=== PATIENT | male | born 1935 | race Caucasian/White ===

== ENCOUNTER 2024-02-12 13:28 | Day surgery (SDC) | payer OTHER ==
[2024-02-12] MEDS ORDERED: Xylocaine-Mpf 2% 5 Ml Vial IJ ONE (13:29)
[2024-02-12] MEDS ORDERED: Depo-Medrol 40 MG/ML IM ONE (13:29)
[2024-02-12] MEDS ORDERED: DIPRIVAN 200 MG/20 ML IV ONE (14:17)
--- NOTE | 2024-02-12 16:31 | XRAY ---
Indication: Bilateral L4-S1 MBB. Intraoperative fluoroscopy provided for 13 seconds. Single digital spot image submitted for interpretation demonstrates posterior needle tips projecting over the expected left and right L4-S1 nerve roots. Correlate with intraoperative findings/report.
--- NOTE | 2024-02-12 16:44 | XRAY ---
13 seconds of fluoroscopy was used in surgery for a bilateral L4-S1 MBB.
== END 2024-02-12 14:45 | disposition home or self-care (01) ==
LOC: SDC-PAIN 13:28
PROVIDERS: ATTEND Psychiatry & Neurology Pain Medicine
DX: M47.816 Spondylosis without myelopathy or radiculopathy, lumbar region (principal)
CPT/HCPCS: 64493; 64494; 72020; 77002; J2704

== ENCOUNTER 2024-03-03 12:51 | Day surgery (SDC) | payer OTHER ==
[2024-03-03] MEDS ORDERED: Depo-Medrol 40 MG/ML IM ONE (12:52)
[2024-03-03] MEDS ORDERED: BUPIVACAINE 0.5% VIAL IJ ONE (12:52)
[2024-03-03] MEDS ORDERED: DIPRIVAN 200 MG/20 ML IV ONE (13:56)
--- NOTE | 2024-03-03 16:29 | XRAY ---
Indication: Bilateral L4-S1 MBB. Intraoperative fluoroscopy provided for 9 seconds. Single digital spot image submitted for interpretation demonstrates posterior needle tips projecting over the expected left and right L4-S1 nerve roots. Correlate with intraoperative findings/report.
--- NOTE | 2024-03-03 17:10 | XRAY ---
9 seconds of fluoroscopy was used in surgery for a bilateral L4-S1 MBB.
== END 2024-03-03 14:20 | disposition home or self-care (01) ==
LOC: SDC-PAIN 12:51
PROVIDERS: ATTEND Psychiatry & Neurology Pain Medicine
DX: M47.816 Spondylosis without myelopathy or radiculopathy, lumbar region (principal)
CPT/HCPCS: 64493; 64494; 72020; 77002; J2704

== ENCOUNTER 2024-04-21 11:46 | Day surgery (SDC) | payer OTHER ==
[2024-04-21] MEDS ORDERED: propofoL IV ONE (13:28)
--- NOTE | 2024-04-21 14:20 | XRAY ---
Indication: Right L4-S1 RFA. Intraoperative fluoroscopy provided for 25 seconds. 4 digital spot images submitted for interpretation demonstrates posterior needle tips projecting over the expected right L4-S1 nerve roots. Correlate with intraoperative findings/report.
--- NOTE | 2024-04-21 14:57 | XRAY ---
25 seconds of fluoroscopy was used in surgery for a right L4-S1 RFA.
== END 2024-04-21 14:05 | disposition home or self-care (01) ==
LOC: SDC-PAIN 11:46
PROVIDERS: ATTEND Psychiatry & Neurology Pain Medicine
DX: M47.816 Spondylosis without myelopathy or radiculopathy, lumbar region (principal)
CPT/HCPCS: 64635; 64636; 72100; 77002; 99100; J2704

== ENCOUNTER 2024-04-22 11:58 | Day surgery (SDC) | payer OTHER ==
[2024-04-22] MEDS ORDERED: BUPIVACAINE 0.5% VIAL IJ ONE (11:59)
[2024-04-22] MEDS ORDERED: methylPREDNISolone acetate IM ONE (11:59)
[2024-04-22] MEDS ORDERED: LIDOCAINE HCL 1% 50 MG/5 ML VL IJ ONE (11:59)
[2024-04-22] MEDS ORDERED: propofoL IV ONE (14:07)
--- NOTE | 2024-04-22 14:54 | XRAY ---
Indication: Left L4-S1 RFA. Intraoperative fluoroscopy was provided for 22 seconds. 3 digital spot image submitted for interpretation demonstrates posterior needle tips projecting over expected left L4-S1 nerve roots. Correlate with intraoperative findings/report.
--- NOTE | 2024-04-22 15:20 | XRAY ---
22 seconds of fluoroscopy was used in surgery for a left L4-S1 RFA.
== END 2024-04-22 15:05 | disposition home or self-care (01) ==
LOC: SDC-PAIN 11:58
PROVIDERS: ATTEND Psychiatry & Neurology Pain Medicine
DX: M47.816 Spondylosis without myelopathy or radiculopathy, lumbar region (principal)
CPT/HCPCS: 64635; 64636; 72100; 77002; 99100; J1010; J2704

== ENCOUNTER 2024-05-06 11:59 | Day surgery (SDC) | payer OTHER ==
[2024-05-06] MEDS ORDERED: BUPIVACAINE 0.5% VIAL IJ ONE (12:00)
[2024-05-06] MEDS ORDERED: Depo-Medrol 40 MG/ML IM ONE (12:00)
[2024-05-06] MEDS ORDERED: propofoL IV ONE (13:20)
--- NOTE | 2024-05-06 13:54 | XRAY ---
Indication: Right shoulder and subacromial bursa injection. Intraoperative fluoroscopy provided for 16 seconds. 2 digital spot image submitted for interpretation demonstrates needle tip projecting over right glenohumeral joint superiorly. Second needle tip subacromial. Small amount of contrast injected for needle tip placement. Correlate with intraoperative findings/report.
--- NOTE | 2024-05-06 13:56 | XRAY ---
Indication: Left shoulder and subacromial bursa injection. Intraoperative fluoroscopy provided for 14 seconds. Single digital spot image submitted for interpretation demonstrates needle tip projecting over left subacromial space. Small amount of contrast injected for needle tip placement. Correlate with intraoperative findings/report.
--- NOTE | 2024-05-06 14:04 | XRAY ---
14 seconds of fluoroscopy was used in surgery for a left intra-articular shoulder and subacromial bursa injection.
--- NOTE | 2024-05-06 14:04 | XRAY ---
16 seconds of fluoroscopy was used in surgery for a right intra-articular shoulder and subacromial bursa injection.
== END 2024-05-06 13:54 | disposition home or self-care (01) ==
LOC: SDC-PAIN 11:59
PROVIDERS: ATTEND Psychiatry & Neurology Pain Medicine
DX: M19.012 Primary osteoarthritis, left shoulder (principal); M19.011 Primary osteoarthritis, right shoulder; M75.52 Bursitis of left shoulder; M75.51 Bursitis of right shoulder
CPT/HCPCS: 20610; 73030; 77002; J2704; Q9966

== ENCOUNTER 2024-07-07 12:30 | Day surgery (SDC) | payer OTHER ==
[2024-07-07] MEDS ORDERED: BUPIVACAINE 0.5% VIAL IJ ONE (12:31)
[2024-07-07] MEDS ORDERED: Depo-Medrol 40 MG/ML IM ONE (12:31)
[2024-07-07] MEDS ORDERED: propofoL IV ONE (13:45)
--- NOTE | 2024-07-07 15:02 | XRAY ---
Indication: Right shoulder and subacromial bursa injection. Intraoperative fluoroscopy provided for 17 seconds. 3 digital spot image submitted for interpretation demonstrate needle tip projecting over right glenohumeral joint superiorly. Second needle tip subacromial. Small amount of contrast injected for needle tip placement. Correlate with intraoperative findings/report.
--- NOTE | 2024-07-07 15:04 | XRAY ---
Indication: Left shoulder and subacromial bursa injection. Intraoperative fluoroscopy provided for 11 seconds. 2 digital spot image submitted for interpretation demonstrate needle tip projecting over left glenohumeral joint superiorly. Second needle tip subacromial. Small amount of contrast injected for needle tip placement. Correlate with intraoperative findings/report.
--- NOTE | 2024-07-07 16:28 | XRAY ---
17 seconds of fluoroscopy was used in surgery for a right intra-articular shoulder and subacromial bursa injection.
--- NOTE | 2024-07-07 16:28 | XRAY ---
11 seconds of fluoroscopy was used in surgery for a left intra-articular shoulder and subacromial bursa injection.
== END 2024-07-07 14:30 | disposition home or self-care (01) ==
LOC: SDC-PAIN 12:30
PROVIDERS: ATTEND Psychiatry & Neurology Pain Medicine
DX: M19.012 Primary osteoarthritis, left shoulder (principal); M19.011 Primary osteoarthritis, right shoulder; M75.52 Bursitis of left shoulder; M75.51 Bursitis of right shoulder
CPT/HCPCS: 20610; 73030; 77002; J2704; Q9966

== ENCOUNTER 2024-08-04 12:42 | Day surgery (SDC) | payer OTHER ==
[2024-08-04] MEDS ORDERED: LIDOCAINE HCL 1% AMPUL 5 ML IJ ONE (12:43)
[2024-08-04] MEDS ORDERED: Depo-Medrol 40 MG/ML IM ONE (12:43)
[2024-08-04] MEDS ORDERED: propofoL IV ONE (15:03)
--- NOTE | 2024-08-04 16:53 | XRAY ---
Indication: Bilateral L2-L4 MBB. Intraoperative fluoroscopy provided for 9 seconds. Single digital spot image submitted for interpretation demonstrates posterior needle tips projecting over expected left and right L2-L4 nerve roots. Correlate with intraoperative findings/report.
--- NOTE | 2024-08-04 17:25 | XRAY ---
9 seconds of fluoroscopy used in surgery for a bilateral L2-L4 MBB.
[2024-08-04] MEDS ORDERED: Lactated Ringers 1,000 ML IV ONE (17:47)
== END 2024-08-04 15:13 | disposition home or self-care (01) ==
LOC: SDC-PAIN 12:42
PROVIDERS: ATTEND Psychiatry & Neurology Pain Medicine
DX: M47.817 Spondylosis without myelopathy or radiculopathy, lumbosacral region (principal)
CPT/HCPCS: 64493; 64494; 72020; J2704

== ENCOUNTER 2024-08-18 13:42 | Day surgery (SDC) | payer OTHER ==
[2024-08-18] MEDS ORDERED: methylPREDNISolone acetate IM ONE (13:43)
[2024-08-18] MEDS ORDERED: BUPIVACAINE 0.5% VIAL IJ ONE (13:43)
[2024-08-18] MEDS ORDERED: Lactated Ringers 1,000 ML IV ONE (16:55)
[2024-08-18] MEDS ORDERED: propofoL IV ONE (17:07)
--- NOTE | 2024-08-18 19:01 | XRAY ---
Indication: Bilateral L2-L4 MBB. Intraoperative fluoroscopy provided for 16 seconds. 2 digital spot image submitted for interpretation demonstrates posterior needle tips projecting over expected left and right L2-L4 nerve roots. Correlate with intraoperative findings/report.
--- NOTE | 2024-08-19 08:52 | XRAY ---
16 seconds of fluoroscopy was used in surgery for a bilateral L2-L4 MBB.
== END 2024-08-18 17:03 | disposition home or self-care (01) ==
LOC: SDC 13:42 → SDC-PAIN 13:42
PROVIDERS: ATTEND Psychiatry & Neurology Pain Medicine
DX: M47.817 Spondylosis without myelopathy or radiculopathy, lumbosacral region (principal)
CPT/HCPCS: 64493; 64494; 72020; J1010; J2704

== ENCOUNTER 2025-02-24 15:44 | Day surgery (SDC) | payer OTHER ==
[2025-02-24] MEDS ORDERED: methylPREDNISolone acetate IM ONE (15:45)
[2025-02-24] MEDS ORDERED: BUPIVACAINE 0.5% VIAL IJ ONE (15:45)
[2025-02-24] MEDS ORDERED: LIDOCAINE HCL 1% 50 MG/5 ML VL IJ ONE (15:45)
--- NOTE | 2025-02-24 20:46 | XRAY ---
Indication: Left knee injection. Intraoperative fluoroscopy provided for 8 seconds. Single digital spot image submitted for interpretation demonstrates needle tip projecting over left glenohumeral joint superiorly. Small amount of contrast injected for needle tip placement. Correlate with intraoperative findings/report.
--- NOTE | 2025-02-24 20:46 | XRAY ---
Indication: Right shoulder injection. Intraoperative fluoroscopy provided for 11 seconds. Single digital spot image submitted for interpretation demonstrates needle tip projecting over right glenohumeral joint superiorly. Small amount of contrast injected for needle tip placement. Correlate with intraoperative findings/report.
--- NOTE | 2025-02-25 08:36 | XRAY ---
8 seconds of fluoroscopy was used in surgery for a left intra-articular shoulder injection.
--- NOTE | 2025-02-25 08:36 | XRAY ---
11 seconds of fluoroscopy was used in surgery for a right intra-articular shoulder injection.
== END 2025-02-24 17:42 | disposition home or self-care (01) ==
LOC: SDC-PAIN 15:44
PROVIDERS: ATTEND Psychiatry & Neurology Pain Medicine
DX: M19.012 Primary osteoarthritis, left shoulder (principal); M19.011 Primary osteoarthritis, right shoulder